=== PATIENT | male | born 1970 | race American Indian/Alaskan Native ===

== ENCOUNTER 2018-04-14 18:50 | Emergency (ER) | payer MEDICARE, MEDICAID ==
[2018-04-14 19:17] VITALS: BMI 25.7
[2018-04-14 19:34] VITALS: RESP 20; O2SAT 99
[2018-04-14 20:03] LABS: BASO # 0.1 K/uL (0.0-0.2); BASO % 1.4 % (0.0-2.0); EOS # 0.3 K/uL (0.0-0.7); EOS % 4.6 % (0.0-4.0); HEMOGLOBIN 13.6 g/dL (12.0-18.0); LYMPH % 50.8 % (20.0-40.0); MEAN CELL VOLUME 88.9 fL (80.0-94.0); MEAN CORPUSCULAR HEMOGLOBIN 29.6 pg (27.0-31.0); MEAN CORPUSCULAR HGB CONC 33.3 g/dL (33.0-37.0); MEAN PLATELET VOLUME 8.9 fL (7.2-11.7); MONO # 0.4 K/uL (0.0-0.8); MONO % 6.6 % (0.0-10.0); NEUT # 2.2 K/uL (1.8-7.0); NEUT % 36.6 % (50.0-75.0); NRBC % 0.1 % (0.0-2.0); RBC 4.6 Mil/uL (4.40-5.90); RED CELL DISTRIBUTION WIDTH 13.4 % (11.5-14.5)
--- NOTE | 2018-04-14 20:08 | C.PDOC ---
History Of Present Illness 47 y/o male arrives to the ED accompanied by PD and EMS after being found in public with aggressive behavior. As per EMS, patient was yelling at bystanders. Upon arrival to ED, patient is aggressive toward staff. Unable to obtain history from patient secondary to aggressive behavior and lack of cooperation. No evidence of trauma. Time Seen by Provider: 04/14/18 18:53 Chief Complaint (Nursing): Substance Abuse History Per: Patient History/Exam Limitations: intoxication, other (aggressiveness) Onset/Duration Of Symptoms: Hrs Current Symptoms Are (Timing): Still Present Additional History Per: EMS, Law Enforcement Past Medical History Reviewed: Historical Data, Nursing Documentation, Vital Signs Vital Signs: Last Vital Signs Temp 99.8 F H 04/14/18 19:13 Pulse 146 H 04/14/18 19:13 Resp 20 04/14/18 19:13 BP Pulse Ox 99 04/14/18 19:13 Family History: States: No Known Family Hx - Social History Hx Alcohol Use: No Hx Substance Use: No - Immunization History Hx Tetanus Toxoid Vaccination: No Hx Influenza Vaccination: No Hx Pneumococcal Vaccination: No Review Of Systems Review Of Systems: ROS cannot be obtained secondary to pt's inabilty to answer questions. Physical Exam - Physical Exam Appears: Non-toxic, No Acute Distress, Other (Behaving aggressively) Skin: Warm, Dry Head: Atraumatic, Normacephalic Eye(s): bilateral: Normal Inspection, PERRL, EOMI Neck: Normal ROM Chest: Symmetrical Cardiovascular: Rhythm Regular, No Murmur Respiratory: Normal Breath Sounds, No Accessory Muscle Use Gastrointestinal/Abdominal: Soft, No Tenderness Extremity: Bilateral: Atraumatic, Normal Color And Temperature, Normal ROM Neurological/Psych: Normal Speech, Other (Alert, awake, yelling at staff) ED Course And Treatment - Laboratory Results Result Diagrams: 04/14/18 20:00 04/14/18 20:00 O2 Sat by Pulse Oximetry: 99 (RA) Pulse Ox Interpretation: Normal Medical Decision Making Medical Decision Making: Impression: Substance abuse Initial Plan: --CT Head --CMP --Alcohol serum --Acetaminophen --Salicylate --Phorphorous --Magnesium --UDS --CBC --UA --Chest X-Ray --Haldol 5 mg IM --Ativan 2 mg IM --Reeval Progress: Patient medicated due to aggressive behavior. 20:05 Patient now awake, he admits to using heroin today. Denies any other drug use. Denies recent trauma. States that he had 2 surgeries on his right ankle and it is chronically swollen. No acute complaints. 23:10 Patient states that he is sleepy and denies complaint. Will monitor. Disposition - Disposition Referrals: [facility] [Outside] [facility] [Outside] Disposition: HOME/ ROUTINE Disposition Time: 23:30 Condition: IMPROVED Additional Instructions: LUZMARIA DEE, thank you for letting us take care of you today. The emergency medical care you received today was directed at your acute symptoms. If you were prescribed any medication, please fill it and take as directed. It may take several days for your symptoms to resolve. Return to the Emergency Department if your symptoms worsen, do not improve, or if you have any other problems. Please contact your doctor or call one of the physicians/clinics you have been referred to that are listed on the Patient Visit Information form that is included in your discharge packet. Bring any paperwork you were given at discharge with you along with any medications you are taking to your follow up visit. Our treatment cannot replace ongoing medical care by a primary care provider outside of the emergency department. Thank you for allowing the [facility] team to be part of your care today. Follow up with your primary care doctor or our clinic for outpatient care. Instructions: Drug Abuse and Drug Addiction (DC) Forms: [employer] (Serbian) - Clinical Impression Clinical Impression: Drug abuse - Scribe Statement The provider has reviewed the documentation as recorded by the Vicente Dee Provider Attestation: All medical record entries made by the Lizzieibmaury were at my direction and personally dictated by me. I have reviewed the chart and agree that the record accurately reflects my personal performance of the history, physical exam, me dical decision making, and the department course for this patient. I have also personally directed, reviewed, and agree with the discharge instructions and disposition.
[2018-04-14 20:15] LABS: ACETAMINOPHEN < 10.0 ug/mL (10.0-30.0); SALICYLATE < 1.0 mg/dL 1
[2018-04-14 20:17] LABS: ALB/GLOB RATIO 1.5 (1.0-2.1); ALBUMIN 4.3 g/dL (3.5-5.0); ALT/SGPT 26 U/L (21-72); AST/SGOT 32 U/L (17-59); BLOOD UREA NITROGEN 13 mg/dL (9-20); CALCIUM 8.7 mg/dl (8.6-10.4); GFR NON-AFRICAN AMERICAN 59
--- NOTE | 2018-04-14 21:12 | CT ---
Date of service: 04/14/2018 PROCEDURE: CT HEAD WITHOUT CONTRAST. HISTORY: Injury. Evaluate for intracranial hemorrhage. COMPARISON: None available. TECHNIQUE: Axial computed tomography images were obtained through the head/brain without intravenous contrast. Radiation dose: Total exam DLP = 993.14 mGy-cm. This CT exam was performed using one or more of the following dose reduction techniques: Automated exposure control, adjustment of the mA and/or kV according to patient size, and/or use of iterative reconstruction technique. FINDINGS: HEMORRHAGE: No intracranial hemorrhage. BRAIN: No mass effect or edema. No atrophy or chronic microvascular ischemic changes. Bilateral basal ganglia calcifications. VENTRICLES: Unremarkable. No hydrocephalus. CALVARIUM: Unremarkable. PARANASAL SINUSES: Mucosal thickening of the ethmoid air cells as well as the sphenoid sinus. MASTOID AIR CELLS: Unremarkable as visualized. No inflammatory changes. OTHER FINDINGS: None. IMPRESSION: No acute intracranial abnormality. Sinus mucosal disease. If symptoms persists, consider correlation with MRI. A preliminary report was generated at 8:39 p.m. on 04/14/[address] Vlad Elliott from [facility]
--- NOTE | 2018-04-14 21:28 | RAD ---
Chest x-ray single frontal view HISTORY: Detox. COMPARISON: None available. Findings: Mild venous congestion. Left hilar prominence. Heart size within normal limits. Impression: Mild venous congestion. Left hilar prominence.
[2018-04-14 21:37] LABS: URINE BACTERIA OCC (<OCC); URINE BILIRUBIN NEGATIVE (NEGATIVE); URINE BLOOD NEGATIVE (NEGATIVE); URINE CLARITY Clear (Clear); URINE COLOR Yellow (YELLOW); URINE GLUCOSE (UA) NORMAL (Normal); URINE LEUKOCYTE ESTERASE NEG Leu/uL (Negative); URINE PROTEIN NEGATIVE (NEGATIVE)
[2018-04-14 21:40] LABS: BARBITURATES, UR NEGATIVE (NEGATIVE); BENZODIAZEPINES, UR POSITIVE (NEGATIVE); OPIATES, UR POSITIVE (NEGATIVE); PHENCYCLIDINE, UR NEGATIVE (NEGATIVE)
[2018-04-15 00:30] VITALS: BP 120/70; PULSE 92; TEMP 98
== END 2018-04-15 00:30 | disposition home or self-care (01) ==
LOC: C.ER 18:50
DX: F19.10 Other psychoactive substance abuse, uncomplicated (principal)
CPT/HCPCS: 70450; 71045; 80053; 81001; 83735; 84100; 85025; 96372; 99285; G0480; J1630; J2060

== ENCOUNTER 2018-04-15 01:40 | Emergency (ER) | payer MEDICARE, MEDICAID ==
[2018-04-15 01:40] VITALS: BMI 25.7
[2018-04-15 02:09] VITALS: BP 144/94; TEMP 97.6
--- NOTE | 2018-04-15 02:18 | C.PDOC ---
History Of Present Illness 47 year old male is brought to the ED by EMS for drug abuse. Patient was recently discharged from the Hospital earlier today for same. Patient reports using drugs after being discharged today. Patient denies SI/HI, hallucination, CP, SOB, injury, fall, trauma. Chief Complaint (Nursing): Substance Abuse History Per: Patient, EMS History/Exam Limitations: intoxication Onset/Duration Of Symptoms: Hrs Current Symptoms Are (Timing): Still Present Suicide/Self Injury Attempted (Context): None Modifying Factor(s): Other Associated Symptoms: denies: Depression, Suicidal Thoughts, Suicidal Plan Additional History Per: Patient, EMS Past Medical History Reviewed: Historical Data, Nursing Documentation, Vital Signs Vital Signs: Last Vital Signs Temp 97.6 F 04/15/18 01:49 Pulse 96 H 04/15/18 01:49 Resp 20 04/15/18 01:49 BP 144/94 H 04/15/18 01:49 Pulse Ox 96 04/15/18 01:49 - Medical History PMH: No Chronic Diseases Surgical History: No Surg Hx Family History: States: Unknown Family Hx - Social History Hx Alcohol Use: No Hx Substance Use: Yes - Immunization History Hx Tetanus Toxoid Vaccination: No Hx Influenza Vaccination: No Hx Pneumococcal Vaccination: No Review Of Systems Constitutional: Negative for: Fever, Chills Cardiovascular: Negative for: Chest Pain Respiratory: Negative for: Shortness of Breath Gastrointestinal: Negative for: Nausea, Vomiting, Abdominal Pain Psych: Negative for: Depression, Suicidal ideation Physical Exam - Physical Exam Appears: Non-toxic, No Acute Distress, Other (lethergic but arousable) Skin: Normal Color, Warm, Dry Head: Atraumatic, Normacephalic Eye(s): bilateral: Normal Inspection Neck: Normal ROM, Supple Chest: Symmetrical Cardiovascular: Rhythm Regular Respiratory: Normal Breath Sounds, No Rales, No Rhonchi, No Wheezing Gastrointestinal/Abdominal: Soft, No Tenderness, No Guarding, No Rebound Extremity: Normal ROM, No Tenderness, No Swelling Neurological/Psych: Oriented x3, Normal Speech, Normal Cognition Gait: Steady ED Course And Treatment O2 Sat by Pulse Oximetry: 96 (ON RA) Pulse Ox Interpretation: Normal Medical Decision Making Medical Decision Making: Patient with steady gait, ambulating without difficulty AOx3 stable for D/C Disposition Counseled Patient/Family Regarding: Diagnosis - Disposition Referrals: [facility] [Outside] Disposition: HOME/ ROUTINE Disposition Time: 05:43 Condition: STABLE Instructions: Drug Abuse and Drug Addiction (DC) Forms: [facility] (Azeri) - POA Present On Arrival: None - Clinical Impression Clinical Impression: Drug abuse - Scribe Statement The provider has reviewed the documentation as recorded by the Scribe Donis Jacobs All medical record entries made by the Scribe were at my direction and personally dictated by me. I have reviewed the chart and agree that the record accurately reflects my personal performance of the history, physical exam, medical decision making, and the department course for this patient. I have also personally directed, reviewed, and agree with the discharge instructions and disposition.
[2018-04-15 04:12] VITALS: PULSE 65; RESP 12
[2018-04-15 05:44] VITALS: O2SAT 96
== END 2018-04-15 06:04 | disposition home or self-care (01) ==
LOC: C.ER 01:40
DX: F19.10 Other psychoactive substance abuse, uncomplicated (principal)